=== PATIENT | female | born 1980 | race Caucasian/White ===

== ENCOUNTER 2016-07-21 09:12 | Emergency (ER) | payer BC ==
[2016-07-21 09:27] VITALS: BP 146/94
--- NOTE | 2016-07-21 10:05 | RAD ---
INDICATION: Medial posterior elbow pain after falling COMPARISON: None. TECHNIQUE: 4 views left elbow. REPORT: On the lateral view of the elbow there is elevation of the posterior fat pad approximately 4 mm as well as a moderate-sized anterior joint effusion. On the AP view of the elbow there is a minimally displaced fracture through the radial head with a small degree of distal displacement. The remaining visualized bones are intact and appropriately aligned. IMPRESSION: Moderate left elbow effusion due to "step-off" fracture of the left radial head.
--- NOTE | 2016-07-21 10:38 | UC ---
Shavon Smith SooYoung, scribed for Pennie Traore DO on 07/21/16 at 1002 . Upper Extremity HPI - HPI Summary HPI Summary: A 36 y/o F [place] [facility] [place]o L elbow pain onset yesterday after falling off a hoverboard. She landed on her buttocks and elbow. She rates the pain as a 7 out of 10. Aggravating factor: movement. Pain is non-radiating. Denies SOB, CP, abd pain, cough, bowel changes. - History of Current Complaint Chief Complaint: UCUpperExtremity Stated Complaint: ARM INJURY Time Seen by Provider: 07/21/16 09:24 Hx Obtained From: Patient Hx Last Menstrual Period: IUD-NONE Onset/Duration: Sudden Onset, Lasting Days, Still Present Severity Currently: Moderate Pain Intensity: 5 Pain Scale Used: 0-10 Numeric Location Of Pain: Is Discrete @ - L elbow Aggravating Factor(s): Movement Alleviating Factor(s): Rest Associated Signs And Symptoms: Negative: Swelling, Redness, Bruising, Fever, Weakness, Numbness/Tingling - Allergies/Home Medications Allergies/Adverse Reactions: Allergies Allergy/AdvReac Type Severity Reaction Status Date / Time No Known Allergies Allergy Verified 03/21/15 12:30 Home Medications: Home Medications Control 1 tab PO 07/21/16 [History] PMH/Surg Hx/FS Hx/Imm Hx Previously Healthy: No Endocrine History Of: Reports: Thyroid Disease Denies: Diabetes Cardiovascular History Of: Denies: Cardiac Disorders, Hypertension, Pacemaker/ICD Respiratory History Of: Denies: COPD, Asthma GI/ History Of: Denies: Ulcer - Surgical History Surgical History: Yes Surgery Procedure, Year, and Place: OVARIAN CYSTS REMOVAL 2X; - Family History Known Family History: Positive: Cardiac Disease Negative: Hypertension - Social History Occupation: Employed Full-time Lives: With Family Alcohol Use: Daily Substance Use Type: None Smoking Status (MU): Never Smoked Tobacco Review of Systems Constitutional: Negative Skin: Negative Eyes: Negative ENT: Negative Respiratory: Negative Cardiovascular: Negative Gastrointestinal: Negative Genitourinary: Negative Motor: Negative Neurovascular: Negative Musculoskeletal: Arthralgia - elbow Neurological: Negative Psychological: Negative All Other Systems Reviewed And Are Negative: Yes Physical Exam Triage Information Reviewed: Yes Appearance: Well-Appearing, No Pain Distress, Well-Nourished Vital Signs: Initial Vital Signs Temp 98.3 F 07/21/16 09:20 Pulse 100 07/21/16 09:20 Resp 20 07/21/16 09:20 BP 146/94 07/21/16 09:20 Pulse Ox 100 07/21/16 09:20 Vital Signs Reviewed: Yes Eyes: Positive: Conjunctiva Clear. Negative: Discharge ENT: Positive: Hearing grossly normal. Negative: Muffled/hoarse voice Neck exam: Normal Neck: Positive: Supple Respiratory: Positive: Lungs clear, Normal breath sounds, No respiratory distress, No accessory muscle use Cardiovascular: Positive: RRR, No Murmur Musculoskeletal: Positive: ROM Limited @ - L elbow, Other: - tender to palpation of radial head and dis humerous/medial epicondyle Neurological: Positive: Alert, Muscle Tone Normal Psychological Exam: Normal Psychological: Positive: Age Appropriate Behavior Skin Exam: Normal, Other - p: warm, dry, nml color Diagnostics - Radiology Elbow XR Xray Interpretation: Positive (See Comments) - IMPRESSION: Moderate L elbow effusion due to "step off" fracture of the L radial head. Radiology Interpretation Completed By: Radiologist Upper Extremity Course/Dx - Differential Dx/Diagnosis Differential Diagnosis/HQI/PQRI: Arthritis, Bursitis, Contusion, Fracture ( Closed), Strain, Sprain Provider Diagnoses: L radial head fracture Discharge - Discharge Plan Condition: Stable Disposition: HOME Prescriptions: HYDROcodone/ACETAMIN 5-325 MG* [[place] 5-325 TAB*] 1 tab PO Q6H PRN #14 tab MDD 4 TABS PRN Reason: Pain Patient Education Materials: Hydrocodone/Acetaminophen (By mouth), Elbow Fracture in Adults (ED), How to Use a Sling (GEN) Referrals: [facility] [place] [facility] [Outside] Keegan Leo MD [Medical Doctor] - (Follow up in 1-5 days or as per ortho.) Additional Instructions: As we discussed[facility]t with the orthopedist, Dr. Leo, tomorrow. Suggest follow-up in 3-5 days with them. The documentation as recorded by the Shavon hebert SooYoung accurately reflects the service I personally performed and the decisions made by , Pennie Traore DO.
== END 2016-07-21 10:45 | disposition home or self-care (01) ==
LOC: UCEAST 09:12
DX: S52.122A Displaced fracture of head of left radius, initial encounter for closed fracture (principal); V00.181A Fall from other rolling-type pedestrian conveyance, initial encounter; E07.9 Disorder of thyroid, unspecified
CPT/HCPCS: 99213; G0463